=== PATIENT | female | born 1990 | race Hispanic/Latino ===

== ENCOUNTER 2022-02-26 23:40 | Emergency (ER) | payer OTHER, MEDICAID, SELFPAY ==
--- NOTE | 2022-02-26 23:58 | DI.CT.S_ITS ---
PROCEDURE: CT HEAD/BRAIN WO CON INDICATIONS: Facial droop TECHNIQUE: Noncontrast 4.5 mm thick angled axial sections acquired from the foramen magnum to the vertex, with coronal and sagittal reformats. For radiation dose reduction, the following was used: automated exposure control, adjustment of mA and/or kV according to patient size. COMPARISON: None. FINDINGS: Image quality: Excellent. CSF spaces: Basal cisterns are patent. No extra-axial fluid collections. Ventricles are normal in size and shape. Brain: No midline shift. No intracranial masses or hemorrhage. Vuong-white matter interface is normal. Skull and face: Calvarium and visualized facial bones are intact, without suspicious lesions. Sinuses: Visualized sinuses and mastoids are clear. IMPRESSION: Normal for age, source of current facial droop symptoms is not seen. Dictated by: Miguel Segundo M.D. on 02/27/2022 at 0:17 Approved by: Miguel Segundo M.D. on 02/27/2022 at 0:17
[2022-02-26 23:59] VITALS: BP 162/74; PULSE 65; RESP 16; TEMP 36.4; O2SAT 100; BMI 25.0
--- NOTE | 2022-02-27 | PC.NURSE ---
Assumed care of pt at this time - family at bedside - awaiting CT results
--- NOTE | 2022-02-27 00:30 | PC.NURSE ---
MD at bedside - family present
--- NOTE | 2022-02-27 00:51 | ED_ITS ---
HPI - Neuro Symptoms/Deficit General Chief Complaint: Neuro Symptoms/Deficit Stated Complaint: pain in neck and right side face numb Time Seen by Provider: 02/27/22 00:05 Source: patient Mode of arrival: Ambulatory History of Present Illness HPI Narrative: 31-year-old woman with no significant medical history presents with 8 hours of increasing right-sided facial weakness and numbness with eye tearing, altered taste, food and liquid leaking out the right side of her mouth. She states that she has some pain behind her ear on the right side no ear drainage. Has not been sick with any viral infections or bacterial infections recently. No change to medications. She has never had a diagnosis of Dodge's palsy previously. No headaches no other neurologic findings, specifically no paresthesias or weakness in the extremities, no cognitive difficulties or aphasias. She comes in for further evaluation On Anticoagulants: No Related Data Home Medications Medication Instructions Recorded Confirmed citalopram 10 mg tablet 10 mg PO DAILY 02/26/22 02/26/22 Previous Rx's Medication Instructions Recorded erythromycin 5 mg/gram (0.5 %) eye 0.5 inch EYE-RIGHT BID 2 weeks #50 02/27/22 ointment grams prednisone 20 mg tablet 60 mg PO DAILY 7 days #21 tabs 02/27/22 valacyclovir 1 gram tablet 1,000 mg PO Q8H #21 tabs 02/27/22 Allergies Allergy/AdvReac Type Severity Reaction Status Date / Time No Known Drug Allergies Allergy Verified 02/26/22 23:59 Review of Systems Review of Systems Narrative: Remainder of complete review of systems is otherwise unremarkable except for that included in the HPI. Hematologic/Lymphatic On Anticoagulants: No Patient History Medical History (Updated 02/27/22 @ 01:01 by Sera Nielsen MD) Dodge's palsy Social History Smoking Status: Never smoker Smoking Status: Never smoker alcohol intake frequency: 0-2 drinks per day Substance Use Type: does not use Exam Initial Vital Signs Initial Vital Signs: Vital Signs Temperature 97.6 F 02/26/22 23:59 Pulse Rate 65 02/26/22 23:59 Respiratory Rate 16 02/26/22 23:59 Blood Pressure 162/74 H 02/26/22 23:59 Pulse Oximetry 100 02/26/22 23:59 Oxygen Delivery Method 02/26/22 23:59 General: Healthy appearing, in mild distress. Able to give a complete and coherent history. Well-nourished well-developed HEENT: Moist mucous membranes, normal sclera bilaterally with tearing from the right eye and inability to close the right eye completely. Right facial droop. Tympanic membranes and ear canals unremarkable bilaterally. Neck: No cervical adenopathy, supple Respiratory: Lungs are clear to auscultation, no wheezing no rales no rhonchi. Full and symmetrical air movement Cardiac: Regular rate and rhythm no murmurs no bruits Abdomen: Soft, nontender, good bowel tones, no flank pain Skin: Warm and dry, no rashes, specifically no suggestion of zoster to the face Neurologic: Right facial droop including the forehead, inability to close the right eyelid completely. Extremity neurologic exam is entirely unremarkable Extremities: No trauma, well perfused Psych: Cooperative, appropriate insight and affect Course Orders Ordered: ED Orders 02/26/22 23:58 CT head/brain wo con Stat Vital Signs Vital signs: Vital Signs - 8 hr 02/26/22 23:59 Temperature 97.6 F Pulse Rate 65 Respiratory Rate 16 Blood Pressure 162/74 H Pulse Oximetry 100 Oxygen Delivery Method Room Air MDM - Neuro Symptoms/Deficit MDM Narrative Medical decision making narrative: 31-year-old woman with fairly classic presentation of acute onset else palsy with moderately severe symptoms. She is started on 60 mg of prednisone for 1 week as well as 1 g of valacyclovir 3 times a day for 1 week. Will give her some erythromycin ointment along with instructions on keeping her right eye moist. Reassurance is given regarding prognosis as well reassurance that the physical deficit is not going to be this severe for very long but she may have symptoms for up to couple of months. Reviewed the importance of keeping the eye moist. There is no evidence of stroke, brain tumor, ear infection or otitis externa. No zoster. Questions are answered and the patient is safe for discharge home Discharge Plan Departure Patient Disposition: Home Clinical Impression: Dodge's palsy Instructions: DI for [place] Palsy Activity Restrictions/Additional Instructions: Thank you for coming in today Your head CT is very reassuring. 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 This is a facial nerve inflammation and will likely have very good resolution of symptoms. You may need to be more patient then you would like to be and the symptoms may still be noticeable for up to a couple of months. It is important to keep your right eye lubricated because you can not any. Using the eye ointment at night and a Band-Aid to actually tape your eye shot will be helpful. Using [id number]-[id number]-[id number] eye rewetting drops will be helpful. You 10 to have tears forming because the eye is actually too dry. We do know that using steroids for 7 days can make a bit of a difference and we believe that using antiviral treatment will also make a difference particularly when your symptoms are as noticeable as sugars currently are. I have given you a prescription for 60 mg of prednisone to take for 7 days and 1 g of the health psych live your 3 times a day for 7 days. Please schedule follow-up appointment with your primary care physician in about a week to make sure that all of your questions are answered and that your symptoms are improving. If you find that you are getting worse or develop any new symptoms, please feel free to return to the emergency department for further evaluation. Prescriptions: New prednisone 20 mg tablet 60 mg PO DAILY 7 Days Qty: 21 0RF valacyclovir 1 gram tablet 1,000 mg PO Q8H Qty: 21 0RF erythromycin 5 mg/gram (0.5 %) ointment 0.5 inch EYE-RIGHT BID 14 Days Qty: 50 0RF No Action citalopram 10 mg tablet 10 mg PO DAILY Label Comments: Take 1 Tablet by mouth once daily.
[2022-02-27] MEDS: predniSONE 20 MG TABLET 80 MG PO (01:06)
[2022-02-27] MEDS: ERYTHROMYCIN OPHTH 1 GM OINT 1 APPLIC EYE-RIGHT (01:07)
[2022-02-27 01:27] VITALS: BP 143/77; PULSE 60; RESP 16; O2SAT 98
--- NOTE | 2022-02-27 01:32 | PC.NURSE ---
Addendum entered by Olga Maynard R.N. 02/27/22 01:32: Note at 0100 Original Note: Resting quietly in NAD - no needs voiced - PWD - respirations equal and unlabored bilaterally
== END 2022-02-27 01:24 | disposition home or self-care (01) ==
PROVIDERS: Emergency Provider Emergency Medicine
DX: G51.0 Bell's palsy (principal)
CPT/HCPCS: 70450; 99283

== ENCOUNTER 2022-04-15 15:28 | Emergency (ER) | payer OTHER, MEDICAID, SELFPAY ==
[2022-04-15 15:40] VITALS: BP 128/86; PULSE 97; RESP 16; TEMP 37.1; O2SAT 100; BMI 23.2
[2022-04-15 15:56] LABS: Bilirubin Urine UA NEGATIVE (NEGATIVE); Color Urine UA YELLOW; Glucose Urine UA NEGATIVE (Negative); Ketones Urine UA 2+ (NEGATIVE); Leukocyte Esterase Urine UA TRACE (NEGATIVE); Nitrite Urine UA NEGATIVE (Negative); Occult Blood Urine UA 1+ (Negative); Protein Urine UA TRACE (Negative); Specific Gravity Urine UA 1.025 (1.000-1.035); Urobilinogen Urine UA 0.2 E.U./dL (0.2)
[2022-04-15 16:03] LABS: Appearance Urine UA Slightly Cloudy; RBC Urine 0-1/HPF (0-5/HPF); WBC Urine 5-10/HPF (0-5/HPF); pH Urine UA 5.5 (4.5-8.0)
[2022-04-15 16:04] LABS: Bacteria Urine Moderate (10-30); Culture Indicated Urine Specimen Cultured; Squamous Epithelial Cell Urine 5-10 /HPF (0-5/HPF)
[2022-04-15 16:30] LABS: Influenza A - CEPHEID Flu A POSITIVE (NEGATIVE); Influenza B - CEPHEID Flu B NEGATIVE (NEGATIVE); Respiratory Syncytial Virus Negative (Negative)
[2022-04-15 16:32] LABS: COVID-19 CEPHEID 4-PLEX PCR Negative (Negative)
--- NOTE | 2022-04-15 17:00 | ED.URI ---
HPI - URI/Sore Throat <STEVE Golden - Last Filed: 04/15/22 20:20> General Chief Complaint: Abdominal Pain Stated Complaint: Aches/Rt Sided Abd Pain Time Seen by Provider: 04/15/22 16:22 History of Present Illness HPI Narrative: This is a 31-year-old female presents to the emergency department with influenza a exposure and complains of 5 days of muscle aches, cough, congestion, and states over the last 2 days she is had dysuria and urinary frequency. She states that the 1st 2 days she had vomiting, endorses fever and chills, denies ear pain, neck pain, history of lung or heart disease. She denies shortness of breath, endorses fatigue and lightheadedness without syncope. Related Data Home Medications Medication Instructions Recorded Confirmed citalopram 10 mg tablet 10 mg PO DAILY 02/26/22 02/26/22 Previous Rx's Medication Instructions Recorded valacyclovir 1 gram tablet 1,000 mg PO Q8H #21 tabs 02/27/22 cephalexin 500 mg capsule 500 mg PO BID 5 days #10 caps 04/15/22 cetirizine 10 mg tablet 10 mg PO DAILY PRN congestion #30 04/15/22 tabs ondansetron 4 mg disintegrating 4 mg PO Q8H PRN nausea and 04/15/22 tablet vomiting #14 tabs phenazopyridine 100 mg tablet 100 mg PO TID PRN pain 6 doses #7 04/15/22 (Pyridium) tabs Allergies Allergy/AdvReac Type Severity Reaction Status Date / Time No Known Drug Allergies Allergy Verified 04/15/22 15:44 Review of Systems <STEVE Golden - Last Filed: 04/15/22 20:20> Review of Systems Narrative: Review of systems is negative for acute abnormalities unless otherwise noted in HPI Patient History <STEVE Golden - Last Filed: 04/15/22 20:20> Medical History Dodge's palsy Social History Smoking Status: Never smoker Smoking Status: Never smoker alcohol intake frequency: 0-2 drinks per day Substance Use Type: does not use Exam <STEVE Golden - Last Filed: 04/15/22 20:20> Narrative Exam Narrative: Reviewed vitals signs and nursing notes. General: cooperative, comfortable, in no acute distress, well groomed HEENT: symmetrical facial expressions, moist mucous membranes, congestion present Cardiovascular: Tachycardic rate and regular rhythm, no peripheral edema, warm extremities Respiratory: normal effort, able to speak in complete sentences, without wheezing, stridor, or abnormal breath sounds. No retractions or tachypnea. GI: abdomen soft, nontender to palpation, nondistended, without masses, rebound tenderness or exquisite tenderness with exam. MSK: moves all extremities, neurovascularly intact, no weakness, normal tone Skin: brisk capillary refill, without pallor or erythema Neuro: normal speech and cognition, A&O x3, ambulatory, clear speech Psych: mental status is grossly normal, congruent mood, normal affect, pleasant and cooperative Initial Vital Signs Initial Vital Signs: Vital Signs Temperature 98.8 F 04/15/22 15:40 Pulse Rate 97 H 04/15/22 15:40 Respiratory Rate 16 04/15/22 15:40 Blood Pressure 128/86 04/15/22 15:40 Pulse Oximetry 100 04/15/22 15:40 Oxygen Delivery Method 04/15/22 15:40 <Mihir Dickinson MD - Last Filed: 04/16/22 07:03> Initial Vital Signs Initial Vital Signs: Vital Signs Temperature 98.8 F 04/15/22 15:40 Pulse Rate 97 H 04/15/22 15:40 Respiratory Rate 16 04/15/22 15:40 Blood Pressure 128/86 04/15/22 15:40 Pulse Oximetry 100 04/15/22 15:40 Oxygen Delivery Method 04/15/22 15:40 Course <STEVE Golden - Last Filed: 04/15/22 20:20> Orders Ordered: Discontinued Medications Cephalexin HCl (Cephalexin 250 Mg Capsule) 500 mg PO NOW ONE Stop: 04/15/22 16:24 Last Admin: 04/15/22 17:01 Dose: 500 mg Documented By: [facility] Ketorolac Tromethamine (Ketorolac 30 Mg/Ml Vial) 30 mg IM NOW ONE Stop: 04/15/22 16:24 Last Admin: 04/15/22 17:01 Dose: 30 mg Documented By: RADHA Ondansetron HCl (Ondansetron 4 Mg Odt) 4 mg SL NOW ONE Stop: 04/15/22 16:24 Last Admin: 04/15/22 17:01 Dose: 4 mg Documented By: RADHA Phenazopyridine HCl (Phenazopyridine 100 Mg Tablet) 100 mg PO NOW ONE Stop: 04/15/22 16:24 Last Admin: 04/15/22 17:01 Dose: 100 mg Documented By: RADHA Vital Signs Vital signs: Vital Signs - 8 hr 04/15/22 15:40 04/15/22 17:39 Temperature 98.8 F Pulse Rate 97 H 75 Respiratory Rate 16 16 Blood Pressure 128/86 126/80 Pulse Oximetry 100 98 Oxygen Delivery Method Room Air Room Air <Mihir Dickinson MD - Last Filed: 04/16/22 07:03> Orders Ordered: Discontinued Medications Cephalexin HCl (Cephalexin 250 Mg Capsule) 500 mg PO NOW ONE Stop: 04/15/22 16:24 Last Admin: 04/15/22 17:01 Dose: 500 mg Documented By: RADHA Ketorolac Tromethamine (Ketorolac 30 Mg/Ml Vial) 30 mg IM NOW ONE Stop: 04/15/22 16:24 Last Admin: 04/15/22 17:01 Dose: 30 mg Documented By: RADHA Ondansetron HCl (Ondansetron 4 Mg Odt) 4 mg SL NOW ONE Stop: 04/15/22 16:24 Last Admin: 04/15/22 17:01 Dose: 4 mg Documented By: RADHA Phenazopyridine HCl (Phenazopyridine 100 Mg Tablet) 100 mg PO NOW ONE Stop: 04/15/22 16:24 Last Admin: 04/15/22 17:01 Dose: 100 mg Documented By: RADHA Vital Signs Vital signs: Vital Signs - 8 hr 04/15/22 15:40 04/15/22 17:39 Temperature 98.8 F Pulse Rate 97 H 75 Respiratory Rate 16 16 Blood Pressure 128/86 126/80 Pulse Oximetry 100 98 Oxygen Delivery Method Room Air Room Air MDM - URI/Sore Throat <STEVE Golden - Last Filed: 04/15/22 20:20> Lab Data Labs: Lab Results 04/15/22 04/15/22 Range/Units 15:44 15:45 Urine Color Yellow Urine Appearance Slightly cloudy Urine pH 5.5 (4.5-8.0) Ur Specific [place] 1.025 (1.000-1.035) Urine Protein Trace H (Negative) Urine Glucose (UA) Negative (Negative) g/dL Urine Ketones 2+ H (NEGATIVE) Urine Occult Blood 1+ H (Negative) Urine Nitrate Negative (Negative) Urine Bilirubin Negative (NEGATIVE) Urine Urobilinogen 0.2 (0.2) E.U./dL Ur Leukocyte Esterase Trace H (NEGATIVE) Urine RBC 0-1/hpf (0-5/HPF) Urine WBC 5-10/hpf H (0-5/HPF) Ur Squamous Epith Cells 5-10 /hpf H (0-5/HPF) Urine Bacteria Moderate (10-30) H (None) Ur Culture Indicated? Specimen cultured SARS-CoV-2 (PCR) Negative (Negative) Influenza A (RT-PCR) Flu a positive H (NEGATIVE) Influenza B (RT-PCR) Flu b negative (NEGATIVE) RSV (PCR) Negative (Negative) Point of Care Testing Test Results Negative Urine Dip Bedside Urine Glucose Negative Bedside Urine Bilirubin - Negative Bedside Urine Ketone +++ 80 Urine Specific [place] 1.030 Bedside Urine Occult Blood +/- Bedside Urine pH 6.0 Bedside Urine Protein +/- 15 Bedside Urine Urobilinogen - Negative Bedside Urine Nitrite - Negative Bedside Urine Leukocytes - Negative Esterase MDM Narrative Medical decision making narrative: This is a 31-year-old female presents to the emergency department with respiratory symptoms including cough, congestion, muscle aches, nausea with vomiting and also endorses dysuria and urinary frequency. Her respiratory panel is positive for influenza a, she is had symptoms for the last 5 days, her UA is positive for wbc's, bacteria and nitrites, urine cultures pending. Patient was treated in the emergency department with above-stated therapies and had improvement in her symptoms. She is well hydrated, she is without respiratory distress, hypoxia abnormal breath sounds, and is tolerating her symptoms. Encourage patient to stay hydrated, return for any worsening, follow-up with her primary care provider. Other possible diagnosis' considered include; viral URI, influenza, pneumonia, pharyngitis, acute bronchitis, allergic rhinitis, pertussis, sinusitis, appendicitis, dehydration. No peritoneal signs on abdominal exam. Patient remains p.o. tolerant. Serial abdominal exam without increase in abdominal pain. Given history and exam, low suspicion for acute abdominal process, such as acute cholecystitis, pancreatitis, perforated viscus, atypical appendicitis, colitis, diverticulitis or torsion. Extensive conversation about ER return precautions and need for close follow-up. Rest, drink plenty of fluids, NSAIDS for muscle aches and pains. Return to ED for worsening symptoms such as SOB, chest pain, inability to take adequate oral fluids, fever, or productive cough. Patient is appropriate and amenable to discharge home. Vital signs are stable on repeat examination is unremarkable. Patient has been informed of results. Patient has been given strict return to ER precautions for any new or worsening symptoms. Patient understands to follow up closely with outpatient providers as instructed. Patient understands plan and agrees to discharge home. All questions and concerns answered at this time. <Mihir Dickinson MD - Last Filed: 04/16/22 07:03> Lab Data Labs: Lab Results 04/15/22 04/15/22 Range/Units 15:44 15:45 Urine Color Yellow Urine Appearance Slightly cloudy Urine pH 5.5 (4.5-8.0) Ur Specific [place] 1.025 (1.000-1.035) Urine Protein Trace H (Negative) Urine Glucose (UA) Negative (Negative) g/dL Urine Ketones 2+ H (NEGATIVE) Urine Occult Blood 1+ H (Negative) Urine Nitrate Negative (Negative) Urine Bilirubin Negative (NEGATIVE) Urine Urobilinogen 0.2 (0.2) E.U./dL Ur Leukocyte Esterase Trace H (NEGATIVE) Urine RBC 0-1/hpf (0-5/HPF) Urine WBC 5-10/hpf H (0-5/HPF) Ur Squamous Epith Cells 5-10 /hpf H (0-5/HPF) Urine Bacteria Moderate (10-30) H (None) Ur Culture Indicated? Specimen cultured SARS-CoV-2 (PCR) Negative (Negative) Influenza A (RT-PCR) Flu a positive H (NEGATIVE) Influenza B (RT-PCR) Flu b negative (NEGATIVE) RSV (PCR) Negative (Negative) Point of Care Testing Test Results Negative Urine Dip Bedside Urine Glucose Negative Bedside Urine Bilirubin - Negative Bedside Urine Ketone +++ 80 Urine Specific [place] 1.030 Bedside Urine Occult Blood +/- Bedside Urine pH 6.0 Bedside Urine Protein +/- 15 Bedside Urine Urobilinogen - Negative Bedside Urine Nitrite - Negative Bedside Urine Leukocytes - Negative Esterase Discharge Plan Departure Patient Disposition: Home Clinical Impression: Influenza A, Acute cystitis with hematuria Instructions: Influenza, Acute Cystitis Activity Restrictions/Additional Instructions: *You have been diagnosed with influenza a, and a bladder infection. Please take Tylenol 650 mg and ibuprofen 600 mg every 6 hours for your pain, inflammation and symptoms. Please say hydrated, take Zofran as needed for nausea vomiting, Zyrtec at night for nasal congestion, and your antibiotic twice a day. You can use Flonase nasal spray to decrease congestion, hopefully you start feeling better soon, return for any worsening conditions or if you are unable to keep anything down. *What to do: *Please continue to take your regular medications as directed. [ ] New medication prescriptions sent to your pharmacy: [ [facility], [place], [facility]] [ ] New medication written as a paper prescription [ ] No new medications given *Please follow up with your primary care provider in 2-3 days, call for an appointment. Let them know you were seen in the Emergency Department and that we asked that you be seen for follow-up. We will electronically transmit a record of today's note if your PCP is in our system *If you do not have a primary care provider please contact [phone] to establish care with one of the [facility] primary care providers. *Return to Emergency Department if you should have any new, worsening, or concerning symptoms, such as [fever greater than 101F, chills, worsening pain, persistent vomiting or other bothersome symptoms]. Prescriptions: New cephalexin 500 mg capsule 500 mg PO BID 5 Days Qty: 10 0RF phenazopyridine [Pyridium] 100 mg tablet 100 mg PO TID PRN (Reason: pain) Qty: 7 0RF ondansetron 4 mg tablet,disintegrating 4 mg PO Q8H PRN (Reason: nausea and vomiting) Qty: 14 0RF cetirizine 10 mg tablet 10 mg PO DAILY PRN (Reason: congestion) Qty: 30 0RF No Action citalopram 10 mg tablet 10 mg PO DAILY Label Comments: Take 1 Tablet by mouth once daily. valacyclovir 1 gram tablet 1,000 mg PO Q8H Qty: 21 0RF Referrals: Satish Sheppard MD [Primary Care Provider] - Stand Alone Forms: Work Release Note Visit Report Forms: Patient Portal/API <Mihir Dickinson MD - Last Filed: 04/16/22 07:03> Cosign ED Attending Cosignature Attestation: I was immediately available in the department for consultation. ?This documentation has been reviewed and I agree with assessment and plan. Supervised by Mihir Dickinson MD
[2022-04-15] MEDS: KETOROLAC 30 MG/ML VIAL IM (17:01)
[2022-04-15] MEDS: cephALEXin 250 MG CAPSULE 500 MG PO (17:01)
[2022-04-15] MEDS: PHENAZOPYRIDINE 100 MG TABLET PO (17:01)
[2022-04-15] MEDS: ONDANSETRON 4 MG ODT SL (17:01)
[2022-04-15 17:39] VITALS: BP 126/80; PULSE 75; RESP 16; O2SAT 98
--- NOTE | 2022-04-15 18:05 | PC.NURSE ---
provider acacia zuniga performed assessment.
== END 2022-04-15 18:06 | disposition home or self-care (01) ==
PROVIDERS: Emergency Medicine; Emergency Provider Nurse Practitioner Critical Care Medicine; PCP Family Medicine
DX: J10.1 Influenza due to other identified influenza virus with other respiratory manifestations (principal); N30.01 Acute cystitis with hematuria; R00.0 Tachycardia, unspecified; Z20.822 Contact with and (suspected) exposure to COVID-19
CPT/HCPCS: 0241U; 81001; 81003; 81025; 87086; 96372; 99283; J1885

== ENCOUNTER 2022-08-30 09:48 | Emergency (ER) | payer OTHER, MEDICAID, SELFPAY ==
[2022-08-30 10:05] VITALS: BP 148/85; PULSE 71; RESP 18; TEMP 36.7; O2SAT 99; BMI 24.7
[2022-08-30] MEDS: LIDOCAINE PATCH 1 EACH ADH..PATCH TOP (10:21)
[2022-08-30] MEDS: KETOROLAC 30 MG/ML VIAL IM (10:22)
--- NOTE | 2022-08-30 10:24 | ED_ITS ---
HPI - Back Pain/Injury General Chief Complaint: Back Pain/Injury Stated Complaint: Back neck pain Time Seen by Provider: 08/30/22 10:11 History of Present Illness HPI Narrative: 31-year-old female nonsmoker with a history of Dodge's palsy presents with a chief complaint of a area of tenderness behind her left ear that she is noticed for the past few days. She states that she had Dodge's palsy a few years ago on the right side in his started with pain behind her right ear and she is co ncerned that maybe she is developing Dodge's palsy. She denies any facial numbness, tingling or weakness. She denies any difficulty closing her eyes. She has no headache or blurred vision. She denies any trouble with speech or abnormal taste. She states that at some point yesterday she had some twitching below her left eye which has resolved but that was also part of the initial presentation of Dodge's palsy previously. She denies recent upper respiratory complaints. She has no chest pain or shortness of breath. She denies abdominal pain, nausea or vomiting or diarrhea. No urinary complaints. She has some mild left-sided neck pain and perhaps some involvement of bilateral shoulders as well. She works as a caregiver Related Data Home Medications Medication Instructions Recorded Confirmed citalopram 10 mg tablet 10 mg PO DAILY 02/26/22 02/26/22 Previous Rx's Medication Instructions Recorded valacyclovir 1 gram tablet 1,000 mg PO Q8H #21 tabs 02/27/22 cetirizine 10 mg tablet 10 mg PO DAILY PRN congestion #30 04/15/22 tabs ondansetron 4 mg disintegrating 4 mg PO Q8H PRN nausea and 04/15/22 tablet vomiting #14 tabs phenazopyridine 100 mg tablet 100 mg PO TID PRN pain 6 doses #7 04/15/22 (Pyridium) tabs ketorolac 10 mg tablet 10 mg PO Q6H PRN pain #14 tabs 08/30/22 lidocaine 5 % topical patch 1 patch topical DAILY #15 ea 08/30/22 (Lidoderm) Allergies Allergy/AdvReac Type Severity Reaction Status Date / Time No Known Drug Allergies Allergy Verified 04/15/22 15:44 Review of Systems Review of Systems Narrative: GENERAL: Denies chills, fatigue, malaise, fever, sweats. HEENT: Denies sinus pain, ear pain, sore throat, difficulty swallowing, dizziness. RESPIRATORY: Denies dyspnea, cough, wheezing, hemoptysis, sputum. CARDIOVASCULAR: Denies chest pain, palpitations, orthopnea, edema, GASTROINTESTINAL: Denies nausea, vomiting, abdominal pain, diarrhea, constipation, melena. : Denies dysuria, frequency, incontinence, hematuria, urinary retention. MUSCULOSKELETAL: See HPI SKIN: Denies rash, skin lesions, or other NEUROLOGIC: Denies weakness, headache, numbness, change in speech, confusion, seizures, incoordination. PSYCHIATRIC: No concerning psychosocial issues. 12 point review of systems is negative except for those stated above Patient History Medical History Dodge's palsy Social History Smoking Status: Never smoker Smoking Status: Never smoker alcohol intake frequency: 0-2 drinks per day Substance Use Type: does not use Exam Narrative Exam Narrative: GENERAL: [31] year old patient appears stated age. Well-developed patient, in mild distress. HEAD: Atraumatic. Normocephalic. EYES: Pupils equal round and reactive. Extraocular motions intact. No scleral icterus. No injection or drainage. ENT: Nose without bleeding, purulent drainage. Throat without erythema, tonsillar hypertrophy or exudate. Airway patent. NECK: Trachea midline. No midline bony tenderness, no change with axial lo ading, she does have some tenderness in the paraspinal musculature of the left side of her neck, no upper extremity numbness, tingling or weakness. CARDIOVASCULAR: Regular rate and rhythm without murmurs, gallops, or rubs. RESPIRATORY: Clear to auscultation. Breath sounds equal bilaterally. No wheezes, rales, or rhonchi. GASTROINTESTINAL: Abdomen soft, non-tender, nondistended. EXTREMITIES: No edema or joint tenderness. BACK: Nontender without deformity or crepitance. No flank tenderness. NEURO: AOx3. SKIN: No rash or erythema of visible areas NIH Stroke Scale 1a. LOC: Patient is alert and keenly responsive (0) 1b. LOC Questions: Patient answers both LOC questions accurately (0) 1c. LOC Commands: Patient performs both tasks correctly (0) 2. Best Gaze: Normal (0) 3. Visual: No visual loss (0) 4. Facial palsy: Normal symmetrical movements (0) 5. Motor arm: No drift (0) 6. Motor leg: No drift (0) 7. Limb ataxia: Absent (0) 8. Sensory: Normal (0) 9. Best language: No aphasia; normal (0) 10. Dysarthria: Normal (0) 11. Extinction and inattention: No abnormality (0) NIHSS: 0 Initial Vital Signs Initial Vital Signs: Vital Signs Temperature 98.0 F 08/30/22 10:05 Pulse Rate 71 08/30/22 10:05 Respiratory Rate 18 08/30/22 10:05 Blood Pressure 148/85 H 08/30/22 10:05 Pulse Oximetry 99 08/30/22 10:05 Oxygen Delivery Method Room Air 08/30/22 10:05 Course Orders Ordered: Discontinued Medications Ketorolac Tromethamine (Ketorolac 30 Mg/Ml Vial) 30 mg IM NOW ONE Stop: 08/30/22 10:12 Last Admin: 08/30/22 10:22 Dose: 30 mg Documented By: NILTON Lidocaine (Lidocaine Patch 1 Each Adh..Patch) 1 each TOP NOW ONE Stop: 08/30/22 10:12 Last Admin: 08/30/22 10:21 Dose: 1 each Documented By: NILTON Vital Signs Vital signs: Vital Signs - 8 hr 08/30/22 10:05 Temperature 98.0 F Pulse Rate 71 Respiratory Rate 18 Blood Pressure 148/85 H Pulse Oximetry 99 Oxygen Delivery Method Room Air MDM - Back Pain/Injury MDM Narrative Medical decision making narrative: [31] year old patient presents with left-sided neck pain and concern for Dodge's palsy Multiple etiologies for patient's symptoms considered including, but not limited to: [Possible atypical early presentation of Dodge's palsy, musculoskeletal and paraspinal spasm versus other] Prior Charts reviewed in our EMR Primary Historian: patient Patient with reassuring history and physical exam and though she is concerned about the potential of early onset Dodge's palsy she is been having symptoms for few days and has no unilateral numbness, weakness or tingling of her face, no ocular issues and at this point there is no indication for the use of steroids or antivirals. She has no signs of meningitis, no upper extremity numbness, tingling, weakness, change with axial load or suspicion of cervical radiculopathy. There is some question about the potential of inflammation and musculoskeletal spasm and we will treat this way. Patient has been given return precautions and questions answered to her apparent satisfaction Patient's symptoms improved over duration of stay with above-stated therapies. Findings and discharge diagnosis discussed with patient/family followed by verbalization of understanding Return precautions discussed with patient/family whom verbalize understanding of diagnosis and plan Discharge Plan Departure Patient Disposition: Home Clinical Impression: Neck ache Instructions: DI for Neck Pain Activity Restrictions/Additional Instructions: *You have been diagnosed with [neck pain] *What to do: *Please continue to take your regular medications as directed. [ x] New medication prescriptions sent to your pharmacy: [[facility] in [place] ] [ ] New medication written as a paper prescription [ ] No new medications given *Please follow up with your primary care provider in 2-3 days, call for an appointment. Let them know you were seen in the Emergency Department and that we ask that you be seen in follow up. We will electronically transmit a record of today's note if your PCP is in our system *If you do not have a primary care provider please contact the [facility] Resource line at [phone]. They will ask some questions about your medical history and help get you set up with a doctor in the community. *Return to Emergency Department if you should have any new, worsening or concerning symptoms, such as [fever greater than 101 F, shaking chills, worsening pain, persistent vomiting or other bothersome symptoms] Prescriptions: New ketorolac 10 mg tablet 10 mg PO Q6H PRN (Reason: pain) Qty: 14 0RF lidocaine [Lidoderm] 5 % adhesive patch,medicated 1 patch TOP DAILY Qty: 15 0RF Rx Instructions: leave on most painful area for 12 hrs No Action citalopram 10 mg tablet 10 mg PO DAILY Patient Comments: Take 1 Tablet by mouth once daily. valacyclovir 1 gram tablet 1,000 mg PO Q8H Qty: 21 0RF phenazopyridine [Pyridium] 100 mg tablet 100 mg PO TID PRN (Reason: pain) Qty: 7 0RF ondansetron 4 mg tablet,disintegrating 4 mg PO Q8H PRN (Reason: nausea and vomiting) Qty: 14 0RF cetirizine 10 mg tablet 10 mg PO DAILY PRN (Reason: congestion) Qty: 30 0RF Referrals: Satish Sheppard MD [Primary Care Provider] - Stand Alone Forms: Patient Portal/API
== END 2022-08-30 11:35 | disposition home or self-care (01) ==
PROVIDERS: Emergency Provider Emergency Medicine; PCP Family Medicine
DX: M54.2 Cervicalgia (principal)
CPT/HCPCS: 96372; 99283; J1885